=== PATIENT | female | born 2000 | race Caucasian/White ===

== ENCOUNTER 2020-06-29 09:00 | Outpatient (RCR) | payer OTHER, SELFPAY ==
--- NOTE | 2020-06-29 09:00 | BH.SGPN.GN ---
Behaviors/Verbalizations/Mental Status: [] Eye contact is good. Motor activity is appropriate. Appearance is disheveled. Speech is Appropriate. Mood is anxious. Affect is congruent. Thoughts are linear and logical. No evidence of psychosis. Reviewed daily check in sheet and no reports of suicidal ideations or intent. Client Response/Progress/Benefit: [] Pt participated at times. Attentive. This was pt's first day in IOP. She introduced herself to the group stating that she entered [facility] to help with her depression, Bipolar, and anxiety. States I want help and I need this. She discussed being anxious around new people and strangers. Group provided support, encouragement, and some suggestions and advice for her first day and week in the program. No progress noted as this was pt's first day. Will continue in IOP to maintain safety, increase healthy coping, and to stabilize mood. Narrative Note: []
--- NOTE | 2020-06-29 10:10 | BH.SGPN.GN ---
Behaviors/Verbalizations/Mental Status: []Client alert and oriented, casually dressed and groomed. Eye contact good. Motor activity appropriate. Speech within normal limits. Affect constricted, mood dysthymic. Thoughts linear, logical, no signs of hallucinations or delusions. Client Response/Progress/Benefit: []Client engaged participant AEB listening to peers and providing to discussion. Client commented on the quote as well as unhealthy coping skills. Client reported ?some days we will have good days and some days will be terrible, it?s about how we define it.? Client gave examples of unhealthy coping skills such as drinking and drugs. Group shared that people tend to use unhealthy coping skills because they are easier and provide quick relief. Client participated in the group activity and connected that a healthy foundation of coping skills is composed of healthy internal and external coping skills. Client seemed to benefit from increased awareness of the importance of increasing healthy coping skills and consequences of utilizing unhealthy coping skills. Will continue IOP tx to increase healthy coping skills, reduce negative thinking, and improve daily functioning. Narrative Note: []
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
[2020-06-29 10:57] VITALS: BP 120/75; PULSE 100
--- NOTE | 2020-06-29 11:12 | BH.SGPN.GN ---
Behaviors/Verbalizations/Mental Status: [] Client alert and oriented, casually dressed and groomed. Eye contact fair to good. Motor activity appropriate. Speech within normal limits. Affect congruent, mood dysthymic, agitated. Thoughts linear, logical, no signs of hallucinations or delusions Client Response/Progress/Benefit: []Client responded well to session, taking notes, though remaining a mostly passive participant throughout. Group discussed the different categories of coping skills which included distraction, emotional release, grounding, self-love, and thought challenging. Client participated in creating a coping skills ?menu? from the five categories of coping skills. Client's coping skill menu included: video games, hugging, deep breathing, consistent self-care, and reaching out to supports. Client noted she wants to get better at reaching out to healthy supports on a more consistent basis. Appeared to benefit from increasing repertoire of healthy coping skills. Will continue tx to improve daily functioning, increase healthy coping skill repertoire and application, and further improve mental health sx management. Narrative Note: []
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
--- NOTE | 2020-06-29 12:54 | BH.DR.ITP ---
Initial Treatment Plan Patient Information Visit Information: ADMISSION DATE: EXPECTED LOS: 4-6 weeks Problems/Symptoms Problem #1:: Depression Symptom:: Sadness, crying, hopelessness, worthlessness, low motivation, decreased appetite, low energy, guilt, fleeting suicidal ideation, passive thoughts of . Problem #2:: Anxiety Symptom:: Worry, rumination, panic attack.
--- NOTE | 2020-06-30 10:10 | BH.SGPN.GN ---
Behaviors/Verbalizations/Mental Status: [] Eye contact is good. Motor activity is appropriate. Appearance is casual. Speech is Appropriate. Mood is anxious. Affect is congruent. Thoughts are linear and logical. No evidence of psychosis. Client Response/Progress/Benefit: [] Pt was an active participant in group discussion and activity. Attentive during psychoeducation. Provided appropriate feedback. Pt along with peers were able to identify common emotions (both positive and negative) associated with change. Group was able to identify the benefits to making changes such as; personal growth, increased self-esteem, improve mindset, decrease stress, improve emotional health, increase healthy skills, and to get out of same old challenges. Pt and peers were also able to identify some obstacles to making changes which included; low motivation, lack of support, difficult to get out of comfort zone, fear of change, fear of the unknown, fear of repeating past, vulnerability, and asking for help. Pt benefited from group by increasing awareness of emotions and obstacles associated with making changes. Pt will continue in IOP to maintain safety, increase health coping, and to provide support. Narrative Note: []
--- NOTE | 2020-06-30 11:15 | BH.SGPN.GN ---
Behaviors/Verbalizations/Mental Status: []Client alert and oriented, casually dressed and groomed. Eye contact fair. Motor activity appropriate. Speech within normal limits. Affect constricted, mood dysthyimc. Thoughts linear, logical, no signs of hallucinations or delusions. Client Response/Progress/Benefit: []Client responded well to session AEB providing input at times during discussion, engaging in activity, and listening attentively to peers. Client contributed during psychoeducation on the change process and different emotions in each stage of change.Client reports belief she is currently in between the contemplation and preparation stages of change. Client stated barrier to being fully in preparation stage is fear of the unknown. Stated using thought reframe and thinking of the possibilities if she were to make active change could help her move towards preparation stage. Appeared to benefit from identifying what stage of change client is in and identifying strategies to overcome barriers. Will continue IOP tx to increase healthy coping, decrease negative self-talk, and prevent decompensation.
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
--- NOTE | 2020-06-30 20:58 | BH.MTP_ITS ---
Master Treatment Plan - Patient Information Program Physician:: Dr. Wells Primary Therapist:: Aga Gonzales, [facility] - Psychiatric Diagnoses Psychiatric Diagnoses:: Bipolar 2 disorder, depressed; generalized anxiety disorder; attention deficit disorder; rule out ODD by history but patient denies this. Diagnosis Code(s):: F 31.81 - Estimated LOS Estimated LOS (in weeks):: 6 Problem/Goal #1 - Problem/Goal #1 Stated Goal:: Client will increase mood stability and reduce depression due to Bipolar II through Intensive Outpatient Services. Description of Barriers: Potential treatment barriers include pt expressing unsure about commitment to program, substance use, distorted thought patterns, low motivation and apathy. Functional Impact: Pt endorsed diffiuclty getting out of bed, no concentration, no energy, sleeping a lot, and ahedonia. Pt reported mental health symptoms made it hard for her to function in college which has resulted in her failing her first semester of school. Pt stated she didn't go to class because difficulty getting out of bed and had no motivation to complete the school work. Pt's depression and anxiety impact pt's ability to create social relationships. - Objectives Objective #1 Stated Objective: Client will create small weekly goals with activities to improve mood and will identify 2-3 coping strategies to use when feeling depressed. Interventions: Therapist will help client identify activities, in line with maintaining his sobriety, and help client explore additional social outlets. Therapist will utilize CBT techniques to assist client with understanding the connection between thoughts, feelings and behaviors. Education will be provided on behavioral activation. Therapist will assist client in learning internal coping strategies to manage depressive symptoms, along with helping client identify triggers. Discharge Criteria: Client will have achieved this goal when can verbalize and practiced at least 2 healthy coping strategies that successfully manage depressive symptoms. Target Date: 08/11/20 Review Date: 07/28/20 Objective #2 Stated Objective: Pt will decrease depressive symptoms AEB pt?s score on the DSM 5 cross-cutting measure and improve pt?s daily functioning. Interventions: Through groups and individual therapy, pt will be provided with education on cognitive distortions, mistaken beliefs, and identifying and combating negative self-talk. Therapist will assist pt with getting back into the activities she once enjoyed as well as increasing healthy coping strategies. Discharge Criteria: Pt will have met this goal when pt?s score on the DSM 5 cross cutting measure for depression has been decreased and per pt?s report daily functioning has improved. Target Date: 08/11/20 Review Date: 07/28/20 Problem/Goal #2 - Problem/Goal #2 Stated Goal:: Client will reduce overall frequency, intensity, and duration of anxiety so that daily functioning is not impaired.?? Description of Barriers: Potential treatment barriers include pt expressing unsure about commitment to program, substance use, distorted thought patterns, low motivation and apathy. Functional Impact: Pt endorsed diffiuclty getting out of bed, no concentration, no energy, sleeping a lot, and ahedonia. Pt reported mental health symptoms made it hard for her to function in college which has resulted in her failing her first semester of school. Pt stated she didn't go to class because difficulty getting out of bed and had no motivation to complete the school work. Pt's depression and anxiety impact pt's ability to create social relationships. - Objectives Objective #1 Stated Objective: Client will learn and implement 2-3 calming skills to reduce overall anxiety and manage anxiety.?? Interventions: Therapist will teach the client calming/relaxation skills and help clients connect ways to apply skills to daily life. Discharge Criteria: Client will have achieved this goal when can verbalize at least 2 calming skills and implement those skills. Target Date: 08/11/20 Review Date: 07/28/20 Objective #2 Stated Objective: Pt will decrease anxious symptoms AEB pt?s score on the DSM 5 cross-cutting measure improve pt?s daily functioning. Interventions: Through groups and individual therapy, pt will be provided education about anxiety?s impact on body and common physiological reaction to anxiety. Therapist will teach pt appropriate breathing techniques and build healthy coping skills to manage daily anxieties. Discharge Criteria: Pt will have met this goal when pt?s score on the DSM 5 cross cutting measure for anxiety has been decreased and per pt?s report daily functioning has improved. Target Date: 08/11/20 Review Date: 07/28/20
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
--- NOTE | 2020-07-01 09:03 | BH.SGPN.GN ---
This psychotherapy group was provided via telehealth using two-way, real-time interactive telecommunication technology between the patients and the provider. The interactive telecommunication technology included audio and video. The patient was offered telemedicine as an option for care delivery during the COVID-19 pandemic and consented to this option. Patient location: [place] Provider located at [facility] Behaviors/Verbalizations/Mental Status: [] Pt eye contact good, casually dressed, motor activity appropriate, speech normal rate and tone, mood euthymic and anxious, congruent affect, thoughts linear and intact, no evidence of delusions or hallucinations. Patient indicated no suicidal ideation, plan or intent on daily symptom tracker. Client Response/Progress/Benefit: [] Patient receptive of session, engaged throughout AEB sharing thoughts and feelings with group. Identified emotion for the day as ?positive?, noting that she feels a little less anxious about group since attending the first two days. Shared still struggling at times with large group environment and was receptive of supportive feedback provided by fellow group participants. Able to identify current positives which included painting her nails as self-care which was a goal and using positive self-talk when feeling anxious. Current stressor is school as she did not do well last semester due to her mental health and is struggling to decide if she wants to return in the fall. Continues to struggle with internalizing skills, motivation, and negative self-talk which impact progress and reinforce depressive sx. Patient to continue IOP to promote healthy change behaviors, continue to improve sx management and communication with supports, and prevent decompensation. Narrative Note: []
--- NOTE | 2020-07-01 11:15 | BH.SGPN.GN ---
Addendum entered and electronically signed by Aga Gonzales [facility] 07/01/20 16:02: This psychotherapy group was provided via telehealth using two-way, real-time interactive telecommunication technology between the patients and the provider. The interactive telecommunication technology included audio and video. The patient was offered telemedicine as an option for care delivery during the COVID-19 pandemic and consented to this option. Patient location: [place]. Provider located at [facility] Original Note: Behaviors/Verbalizations/Mental Status: []Client alert and oriented, casually dressed and groomed. Eye contact fair. Motor activity appropriate. Speech within normal limits. Affect constricted. Mood dysthymic. Thoughts linear, logical, no signs of hallucinations or delusions. Client Response/Progress/Benefit: []Client mostly passive participant AEB pt providing limited input during discussion, however appeared to listen attentively to peers. Appeared to listen ideas on how to cope with internal barriers that keep clients stuck from moving towards goals. Client able to identify barriers to desired reality which includes: lack of determination to get better, low self-esteem, anxiety, lack of resources, and lack of happiness. Benefited from group by identifying obstacles and solutions to desired reality. Client's first week in IOP. Will continue IOP tx to prevent decompensation, increase healthy coping, and improve daily functioning.
--- NOTE | 2020-07-04 09:00 | BH.SGPN.GN ---
Behaviors/Verbalizations/Mental Status: [] Eye contact is good. Motor activity is appropriate. Appearance is casual. Speech is Appropriate. Mood is anxious. Affect is congruent. Thoughts are linear and logical. No evidence of psychosis. Reviewed daily check in sheet and no reports of suicidal ideations or intent. Client Response/Progress/Benefit: [] Pt was an active participant in group discussion. Attentive. Emotion for today is motivated. Shared that since starting IOP she feels less anxious. Her goal last week was to improve self-care and hygiene. She states that she has showered every day and got her nails done over the weekend. She discussed the mental health benefits of accomplishing these tasks. Progress noted per pt report. Benefited from group encouragement and praise. Will continue in IOP to maintain safety, increase healthy coping, and stabilize mood. Narrative Note: []
--- NOTE | 2020-07-04 10:05 | BH.SGPN.GN ---
Behaviors/Verbalizations/Mental Status: []Client alert and oriented, casually dressed and groomed. Eye contact good. Motor activity appropriate. Speech within normal limits. Affect constricted, mood euthymic. Thoughts linear, logical, no signs of hallucinations or delusions. Client Response/Progress/Benefit: []Pt was an active participant in group discussion and took notes. Connected with quote. Attentive during psychoeducation. Pt worked with group to identify forces that can impact growth and overall mental health. Pt was doing a lot of nodding during the metaphor and shared personal examples of internal and external forces. Pt shared she sometimes tell herself that her bipolar symptoms are out of her control which hinders client from using internal coping skills. Group discussed examples of positive forces such as healthy coping skills and insight as well as negative forces such as distorted thoughts. Pt benefited from increased awareness of the impact positive and negative forces can have on mental health and personal growth. Will continue IOP tx to prevent decompensation, learn healthy coping skills, and reduce negative thinking. Narrative Note: []
--- NOTE | 2020-07-04 11:06 | BH.SGPN.GN ---
Behaviors/Verbalizations/Mental Status: []Client alert and oriented, casually dressed and groomed. Eye contact good. Motor activity appropriate. Speech WNL. Affect congruent, mood anxious and depressed. Thoughts linear, logical, no signs of hallucinations or delusions. Client Response/Progress/Benefit: []Pt engaged during session AEB providing input when elicited, actively participating in activity, completing worksheet, and taking notes throughout. Group processed the activity and identified positive and negative forces impacting ability to complete the challenge. Pt was attentive during psychoeducation and appeared to benefit from increased insight on the impact of own personal negative and positive forces on mental wellness. Identified personal positive forces as: working, having close friends, taking responsibility, maintaining self-care, and reflecting on current mood. Noted plans to increase positive impact of personal responsibility by actively holding herself accountable. Identified negative forces as: toxic friends, lack of supports, letting wants take over the needs, and negative self-talk. Identified wanting to focus on improving her use of positive supports over negative. Recommended continued IOP tx to increase healthy coping skill application, continue to improve emotional stability, and prevent decompensation. Narrative Note: []
--- NOTE | 2020-07-05 09:00 | BH.SGPN.GN ---
Behaviors/Verbalizations/Mental Status: [] Pt eye contact good, casually dressed, motor activity appropriate, speech normal rate and tone, mood euthymic, congruent affect, thoughts linear and intact, no evidence of delusions or hallucinations. Patient indicated no suicidal ideation, plan or intent on daily symptom tracker. Client Response/Progress/Benefit: [] Patient receptive of session, engaged throughout AEB sharing thoughts and feelings with group. Identified emotion for the day as ?tired but not in a bad way?, noting this is due to challenging herself to reach out to others more regularly rather than isolate. Client identified this has been helpful in reducing loneliness and improving relationships but that she is used to being introverted and there is paula adjusting. Discussed plans to spend some time alone this afternoon as a means of recharging before hanging out with friends. Identified continued progress in achieving self-care goals of daily showers and maintaining clean nails. Discussed ongoing stressor as difficulties in saying ?no? to others which has resulted in toxic friendships in the past. Receptive of supportive feedback and expressed wanting to continue to work on improving healthy boundaries. Patient to continue IOP to promote healthy change behaviors, continue to improve sx management, and prevent decompensation. Narrative Note: []
--- NOTE | 2020-07-05 10:20 | BH.SGPN.GN ---
Behaviors/Verbalizations/Mental Status: []Client alert and oriented, disheveled appearance. Eye contact good. Motor activity appropriate. Speech within normal limits. Affect flat, mood dysthymic. Thoughts linear, logical, no evidence of hallucinations or delusions. Client Response/Progress/Benefit: []Client responded well to session, attentive and contributing to discussion. Client worked cooperatively with the group to identify factors that contributed to how we define ourselves which included: upbringing, core beliefs, trauma, social media, past failures, and mental health. Group defined and discussed social and perceived stigma. Client reported she has experienced the impacts of perceived and social mental health stigma. Client shared she has been told she does things ?just to get attention? which causes client to feel angry and lash out. Client recognizes that this can reinforce stigma towards mental health. Client seemed to benefit from increased awareness of how mental health stigma can impact view of self. Client to continue IOP tx to prevent decompensation, increase emotional regulation skills, and improve self-care. Narrative Note: []
--- NOTE | 2020-07-05 11:15 | BH.SGPN.GN ---
Behaviors/Verbalizations/Mental Status: []Client alert and oriented, casually dressed, hygiene appeared to be tended to. Eye contact fair. Motor activity appropriate. Speech within normal limits. Affect constricted, mood dysthymic. Thoughts linear, logical, no signs of hallucinations or delusions. Client Response/Progress/Benefit: []Client engaged participant AEB pt providing input during discussion and listened attentively to peers. Client worked with group to identify what mental stigma has prevented them from doing. Group brainstormed strategies to combat social and perceived stigma which included: educating others, no longer joking about mental illness , being open about mental health, self-compassion and not reinforcing stigma with behaviors or labels. Client stated she will attempt to decrease perceived stigma by opening up to people in her life about her mental health instead of pushing others away. Appeared to benefit from increasing awareness of strategies to combat stigma. Will continue IOP tx to increase healthy coping, improve daily functioning and prevent decompensation. Narrative Note: []
--- NOTE | 2020-07-11 09:00 | BH.SGPN.GN ---
Behaviors/Verbalizations/Mental Status: [] Eye contact is good. Motor activity is appropriate. Appearance is casual. Speech is Appropriate. Mood is euthymic. Affect is full. Thoughts are linear and logical. No evidence of psychosis. Reviewed daily check in sheet and no reports of suicidal ideations or intent Client Response/Progress/Benefit: [] Pt was an active participant in group discussion. Attentive. Provided appropriate feedback. Emotion for today is exhausted but positive. Shared that she has been utilizing her skills more in the past few weeks which has helped her better manage her depression and anxiety. Skills most beneficial include self-care and opposite action. She gave an example of when she used opposite action to avoid isolation this weekend. Reported that last week was very exciting and stressful. She entered into a relationship and got approved for an apartment. This will be the first time that she will be living independently. Progress noted per pt report. Benefited from group support, encouragement, and feedback. Will continue in IOP to maintain safety, prevent decompensation, and to improve coping skills. Narrative Note: []
--- NOTE | 2020-07-11 10:14 | BH.SGPN.GN ---
Behaviors/Verbalizations/Mental Status: []Client alert and oriented, casually dressed and groomed. Eye contact good. Motor activity appropriate. Speech within normal limits. Affect congruent, mood depressed. Thoughts linear, logical, no evidence of delusions or hallucinations. Client Response/Progress/Benefit: []Client engaged throughout session AEB providing input, connecting with others examples, and taking notes throughout. Appeared to connect with discussion on crisis and how unhealthy coping could result in a personal crisis. Shared that ?Bad coping skills tend to lead to worse coping skills?. Group reflected on examples of what a crisis can be and the importance of having awareness of personal warning signs in order to prevent reaching crisis point. Group identified potential warning signs for crisis and client completed the personal warning signs worksheet. Client identified personal crisis warning signs to include: low self-care, apathy, increased risk taking. Client reports she can tell when struggling if she begins to have a more difficult time in encouraging herself to complete regular self-care tasks. Client benefited from increasing awareness of what leads to crisis and personal warning signs. Client will continue IOP tx to prevent decompensation, continue to improve daily functioning, and increase consistent use of healthy coping skills. Narrative Note: []
--- NOTE | 2020-07-11 11:15 | BH.SGPN.GN ---
Behaviors/Verbalizations/Mental Status: []Client alert and oriented, casually dressed and groomed. Eye contact fair. Motor activity appropriate. Speech within normal limits. Affect congruent. Mood euthymic. Thoughts linear, logical, no signs of hallucinations or delusions. Client Response/Progress/Benefit: []Client responded well to session as evidenced by client listening attentively to others and providing strategies during discussion. Client identified her warning signs for crisis and gained further awareness of earliest warning signs. Client created a crisis action plan to help client better manage warning signs for crisis. Client?s action plan for increased risk taking includes: writing down consequences of driving high, find a visualization of her goals to put as phone screensaver, and rudy something motivational for herself. Client appeared to benefit from creating a crisis action plan and increasing self-awareness. Client to continue IOP tx to increase consistent use of healthy coping, challenge distorted thoughts and prevent decompensation.
--- NOTE | 2020-07-12 09:00 | BH.SGPN.GN ---
Behaviors/Verbalizations/Mental Status: [] Eye contact is good. Motor activity is appropriate. Appearance is neat. Speech is Appropriate. Mood is euthymic. Affect is full. Thoughts are linear and logical. No evidence of psychosis. Reviewed daily check in sheet and no reports of suicidal ideations or intent. Client Response/Progress/Benefit: [] Pt was an active participant in group discussion. Attentive. Provided appropriate feedback. Emotion for today is hopeful. Pt shared that she she is continuing with goals for self-care as she showered and got her nails done yesterday. Utilizing skills. Excited and stressed about upcoming changes. She is touring her apartment today with plans to move shortly. Feels optimistic about her future and her relationships. Overall a very positive check-in and has noted gradual improvement since starting IOP. Progress noted per pt report. Benefited from group support and encouragment. Will continue in IOP to maintain gains and increase healthy coping skills consistently. Narrative Note: []
--- NOTE | 2020-07-12 11:19 | BH.SGPN.GN ---
Behaviors/Verbalizations/Mental Status: []Client alert and oriented, neatly dressed and groomed. Eye contact good. Motor activity appropriate. Speech within normal limits. Affect constricted, mood euthymic. Thoughts linear, logical, no signs of hallucinations or delusions. Client Response/Progress/Benefit: []Client responded well to session, connecting with peers and receptive to supportive statements. Client engaged during psychoeducation on the different boundary styles. Client reported she has porous boundaries and shared she struggles with setting boundaries because she is afraid of the response. Client reports this leads to increased depression and feeling overwhelmed. Client participated in brainstorming strategies to improve boundary setting. Client wants to work on the strategy of practicing saying no using different phrases. Seemed to benefit from increased awareness of how current boundary style impacts mental health and learning different strategies to improve boundary style. Client to continue IOP tx to increase healthy coping skills, reduce distorted thoughts, and improve mood stability. Narrative Note: []
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
--- NOTE | 2020-07-14 09:04 | BH.SGPN.GN ---
This psychotherapy group was provided via telehealth using two-way, real-time interactive telecommunication technology between the clients and the provider. The interactive telecommunication technology included audio and video. The client was offered telemedicine as an option for care delivery during the COVID-19 pandemic and consented to this option. Client location: [place] Provider located at [facility] Behaviors/Verbalizations/Mental Status: []Client alert and oriented, casually dressed and groomed. Eye contact good. Motor activity appropriate. Speech within normal limits. Affect incongruent to mood-flat, mood euthymic. Thoughts linear, logical, no signs of hallucinations or delusions. Reviewed client?s symptom tracker, no risk for suicidal ideation, plan, or intent as of 07/14/20 Client Response/Progress/Benefit: []Client responded well to session, engaged and providing supportive feedback to peers. Client reports feeling exhausted but happy this morning. Client shared she had some issues with her apartment this week which triggered a crying spell and client began to feel depressed. Client stated she was able to work through this much faster than she has in the past by using grounding and opposite action. Client reported she also was proactive and asked support to help her move next week rather than waiting until the last minute. Appeared to benefit from reflecting on her application of coping skills. Progress noted in client's use of opposite action to combat depressive symptoms. Will continue IOP tx to promote mood stability and further increase emotional regulation skills. Narrative Note: []
--- NOTE | 2020-07-14 10:20 | BH.SGPN.GN ---
Behaviors/Verbalizations/Mental Status: []Eye contact is poor, looking at phone and items off screen. Alert and oriented. Motor activity is appropriate. Appearance is casual. grooming is appropriate. Speech is WNL, limited input provided. Mood is dysthymic. Affect is congruent. Thoughts are linear and logical. No evidence of psychosis or hallucinations. Client Response/Progress/Benefit: [] Client receptive to session, though struggle to remain engaged or participate in discussion and group activity, Client connected with topic of managing emotions, nodding as participants discussed potential benefits of emotion regulation. However, through much of session appeared to be distracted by her phone and other items in the room. Client is typically engaged when attending session in person. Given difficulties in engaging in the telehealth setting, it is recommended client attend virtually to promote client progress and treatment internalization. Will continue IOP to promote continued use of healthy coping skills, improve consistent mood stability, and prevent decompensation. Narrative Note: []
--- NOTE | 2020-07-21 09:04 | BH.SGPN.GN ---
Behaviors/Verbalizations/Mental Status: [] Pt eye contact good, casually dressed, motor activity appropriate, speech normal rate and tone, mood euthymic, slightly anxious, constricted affect, thoughts linear and intact, no evidence of delusions or hallucinations. Per patient symptom tracker patient denies current suicidal ideation, plan, or intent. Client Response/Progress/Benefit: []Pt responded well to session AEB pt listening attentively to others and openly sharing thoughts and feelings. Pt reported stressor as moving tomorrow to an apartment. Pt stated worries about being able to get everything done. Pt stated additional stressor as waking up in a bad mood then getting in a fight with her parents. Pt reported mental health positive as work not being as stressful. Pt identified using positive affirmations and opposite action to help manage symptoms. Pt mood seems dependent on current circumstance. Pt seemed to benefit from support from group. Pt to continue IOP to continue use of healthy coping, challenge negative thoughts and prevent decompensation. Narrative Note: []
--- NOTE | 2020-08-02 10:08 | BH.SGPN.GN ---
Behaviors/Verbalizations/Mental Status: []Client alert and oriented, casual dress, hygiene tended to. Eye contact fair to good. Motor activity appropriate. Speech within normal limits. Affect flat, mood dysthymic. Thoughts linear, logical, no signs of hallucinations or delusions. Client Response/Progress/Benefit: [] Mostly engaged participant AEB pt providing some input when prompted throughout session and listening attentively to others. Engaged during psychoeducation portion reviewing fixed mindset, though at times did appear distracted by own thoughts. Discussed that fixed thoughts have led to not seeking help from others in the past. Pt listening as the group worked to identify how a fixed mindset can impact mental health which included: keeping people stuck, reinforcing fear of failure, giving up, and negative self-talk. Able to identify personal examples of fixed thoughts which included ?This has gone on so long, I just have to deal with it on my own?. Client shared that she can connect with negative past experiences as reinforcing fixed thoughts. Seemed to benefit from group by increasing awareness of how one's mindset can impact mental health and ability to cope. Pt will continue IOP tx this week to continue to promote healthy coping skills and continue to improve mental health sx management. Narrative Note: []
--- NOTE | 2020-08-09 11:13 | BH.SGPN.GN ---
Behaviors/Verbalizations/Mental Status: []Eye contact is fair. Motor activity is appropriate. Appearance is casual. Speech is Appropriate. Mood is depressed. Affect is congruent. Thoughts are linear and logical. No evidence of psychosis. Client Response/Progress/Benefit: []Pt was a semi-active participant AEB attentiveness and participation in activity. Listening throughout group discussion on benefits and examples of healthily social supports, though remained a mostly passive participant throughout. At times client appeared to be distracted by own thoughts or disengaged. Client did well to acknowledge some of the benefits of a support system and actively participated in group activity, however continued to refrain from speaking throughout. Benefited from supportive group environment, as well as gaining awareness of barriers to support as well as importance of support in mental health wellness. Will continue IOP tx to continue to improve mood management, continue to promote healthy change behaviors, and prevent decompensation. Narrative Note: []
--- NOTE | 2020-08-11 11:18 | BH.SGPN.GN ---
Behaviors/Verbalizations/Mental Status: []Client alert and oriented, casually dressed and groomed. Eye contact fair. Motor activity appropriate. Speech within normal limits. Affect constricted, mood dysthymic. Thoughts linear, logical, no signs of hallucinations or delusions. Client Response/Progress/Benefit: []Client remain semi-engaged participant AEB client participating during discussion, providing input when prompted. Continues to struggle with concentration and becoming distracted by self/own thoughts which impacts participation. Contributed in group discussion on the various areas of self-care, benefits, and types of self-care activities for each area. Client completed worksheet in which client identified current self-care practices and what self-care activities client wants to start using. Client reported she is currently excelling in areas of professional, physical, and emotional self-care. Expressed wanting work on financial self-care as this has been a stressor since moving out on her own. Client shared she wants to begin by creating a weekly budget for herself. Appeared to benefit from reflecting on the area of self-care client can improve and setting a small goal. Discharging on this date and is encouraged to follow-up with outpatient providers. Narrative Note: []
== END 2020-07-18 23:59 ==
LOC: BHIOP 09:00
PROVIDERS: Referring Provider Psychiatry & Neurology Psychiatry; Visit Provider Psychiatry & Neurology Psychiatry
DX: F31.81 Bipolar II disorder (principal); F41.1 Generalized anxiety disorder; F98.8 Other specified behavioral and emotional disorders with onset usually occurring in childhood and adolescence; E03.8 Other specified hypothyroidism; Z79.899 Other long term (current) drug therapy
CPT/HCPCS: H0035; 90832; 90834; 90853

== ENCOUNTER 2020-07-19 09:00 | Outpatient (RCR) | payer OTHER, SELFPAY ==
[2020-07-19 00:42] VITALS: BP 120/75; PULSE 100
--- NOTE | 2020-07-19 09:00 | BH.SGPN.GN ---
Behaviors/Verbalizations/Mental Status: [] Eye contact is good. Motor activity is appropriate. Appearance is casual. Speech is Appropriate. Mood is anxious. Affect is congruent. Thoughts are linear and logical. No evidence of psychosis. Reviewed daily check in sheet and no reports of suicidal ideations or intent. Client Response/Progress/Benefit: [] Pt was an active participant in group discussion. Attentive. Provided appropriate feedback. Daily symptom tracker notes 03/25 for anxiety and irritation. Emotion for today is stressed. Shared with the group that she had a panic attack at work on 07/15/20. This was due to being overwhelmed and busy. Reports that she did not get support from co-workers which led to ruminations and panic. 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 Looking back at the event she had insight regarding what she could have done differently including assertive communication with co-workers and management. She is excited and anxious about upcoming move into her own apartment. Packing has been stressful. Group normalized the emotions related to change. Progress noted per pt report. Benefited from group support and feedback. Will continue in IOP to maintain safety and increase healthy coping. Narrative Note: []
--- NOTE | 2020-07-19 10:10 | BH.SGPN.GN ---
Behaviors/Verbalizations/Mental Status: [] Eye contact is good. Motor activity is appropriate. Appearance is casual. Speech is Appropriate. Mood is anxious. Affect is congruent. Thoughts are linear and logical. No evidence of psychosis. Client Response/Progress/Benefit: [] Pt was an active participant in group discussion and activity. Attentive during psychoeducation on factors that build resiliency. Worked with peers to to define resiliency in which they settled on bouncing back from difficult times. Along with peers also identified what could impact resilience which included; environment, upbringing, family MH beliefs, poverty, support, trauma, never learning coping skills, and emotions. Insight in how group experiential activity in which therapist induced chaotic environment impacted resilience and how group overcame it. Pt benefited by increasing awareness on the role of resilience in mental health and factors that can help build resiliency. Will continue in IOP to maintain gains and increase healthy coping strategies. Narrative Note: []
--- NOTE | 2020-07-19 11:14 | BH.SGPN.GN ---
Behaviors/Verbalizations/Mental Status: []Client alert and oriented, neatly dressed and groomed. Eye contact good. Motor activity appropriate. Speech within normal limits. Affect constricted, mood dysthymic. Thoughts linear, logical, no signs of hallucinations or delusions. Client Response/Progress/Benefit: []Client responded well to session, engaged and participated throughout discussion. Client participated in the discussion of how each resiliency component can help increase personal resiliency. Client worked with group to identify ways to practice each of the resiliency traits reviewed. Provided personal examples. Client shared belief client has the resiliency trait of having self-awareness which has helped client be more ?centered? and recognize distortions. Client would like to work the resiliency trait of nurturing a positive view of herself and making connections. Appeared to benefit from reflecting on already existing resiliency traits and learning how to strengthen resilience. Will continue IOP tx to promote use of healthy coping skills, reduce negative thinking, and improve daily functioning. Narrative Note: []
--- NOTE | 2020-07-21 10:10 | BH.SGPN.GN ---
Behaviors/Verbalizations/Mental Status: [] Eye contact is good. Motor activity is appropriate. Appearance is casual. Speech is Appropriate. Mood is euthymic. Affect is full. Thoughts are linear and logical. No evidence of psychosis. Client Response/Progress/Benefit: [] Pt was an active participant in group discussion and activity. Insight during activity that finding positive aspects of a picture was more challenging than identifying negatives. Pt along with peers were able to identify what could impact one's perspective which included; upbringing, core beliefs, environment, relationships, and sleep. Group was able to identify how a negative perspective could impact progress in mental health treatment leading to beliefs such as; I will not get better, nobody understands me, apathy, withdrawing, irritability, catastrophizing, disqualifying positives, focusing on flaws, personalizing, labeling, focusing on negatives, and convincing one to quit. Pt was able to identify a perspective that has been helpful for her which was understanding how others view her which helped improve her relationships. Benefited from group by increasing awareness on the role of perspective in mental health wellness. Will continue in IOP to maintain gains. Narrative Note: []
--- NOTE | 2020-07-21 14:38 | BH.MDN ---
Multi-Disciplinary Note - Note 45-min Individual Time Started:: 11:10 Date: 07/21/20 Purpose of session/treatment goals addressed:: Purpose of session was to address goals 1 and 2 from MTP. Eye Contact:: Fair Motor Activity:: Appropriate Appearance:: Casual Speech:: Appropriate Mood:: Anxious Affect:: Constricted Thoughts:: Linear, Logical, No evidence of hallucinations/delusions noted Staff Interventions:: motivational interviewing, CBT techniques, strengths perspective, goal setting, taught coping skills Client Response:: Pt reported she woke up in a bad mood this morning and took it out on her parents. Pt worked with therapist to identify what she can do next time she wakes up in a bad mood like communicating this to her parents right away. Pt stated she has been doing better with her goal of brushing her teeth daily. Pt stated showering has still been a struggle. Pt reported her anxiety has been increasing as she gets closer to moving to her own apartment. Pt stated work is starting to get less stressful. Identified attending IOP to be helpful because provides different perspective and finds it helpful to hear from other people with similar experiences. Pt reported she would like to work on saying positive affirmations on a more consistent basis. Pt reported she wants to learn more in the moment anxiety management skills. Pt stated she uses grounding tool like 5,4,3,2,1 skill but doesn't have anything else that has helped. Pt connected with education on progressive muscle relaxation. Pt stated her gal is to practice progressive muscle relaxation and take a bath. Risks/Concerns:: denies current suicidal ideation, plan or intention to date. Progress Toward Goals/Plan:: Progress noted with pt reporting follow through with goal of brushing teeth, identifies improved sleep, energy and motivation. Pt continues to struggle with anxious thoughts and feelings, especially with upcoming move to own apartment. Pt to continue IOP to increase consistent use of healthy coping, challenge distorted thoughts and prevent decompensation. Time Stopped:: 12:00
--- NOTE | 2020-07-25 09:00 | BH.SGPN.GN ---
Behaviors/Verbalizations/Mental Status: [] Pt eye contact good, casually dressed, motor activity appropriate, speech normal rate and tone, mood euthymic, congruent affect, thoughts linear and intact, no evidence of delusions or hallucinations. Reviewed client?s symptom tracker, no signs of suicidal ideation, plan, or intent as of today. Client Response/Progress/Benefit: []Pt responded well to session AEB by pt listening attentively to peers and sharing thoughts and feelings. Pt reported mental health positive as successfully moving in to her new apartment on Saturday. Pt stated she did struggle a little with managing emotions the day of the move but overall went better than she expected. Pt shared additional positive as being able to unpack and set up her apartment. Patient stated no current stressors. Progress noted with patient reporting decrease in depressive and anxious symptoms. Patient to continue IOP to maintain gains, continue use of healthy coping skills, and prevent decompensation. Narrative Note: []
--- NOTE | 2020-07-25 10:10 | BH.SGPN.GN ---
Behaviors/Verbalizations/Mental Status: [] Eye contact is good. Motor activity is appropriate. Appearance is casual. Speech is Appropriate. Mood is euthymic. Affect is full. Thoughts are linear and logical. No evidence of psychosis. Client Response/Progress/Benefit: [] Pt was an active participant in group discussion. Limited engagement in activity however this was due to attending group virtually. Attentive during psychoeducation. Pt and peers provided examples of pitfalls or setbacks that people can fall into which impact mental health which included; triggers, fear, cognitive distortions, isolating, self-pity, avoidance, and pushing support away. Benefited from group by increasing awareness of pitfalls which can impact mental health. Pt will continue in IOP to maintain gains and increase healthy coping strategies. Narrative Note: [] This psychotherapy group was provided via telehealth using two-way, real-time interactive telecommunication technology between the patients and the provider. The interactive telecommunication technology included audio and video. The patient was offered telemedicine as an option for care delivery during the COVID-19 pandemic and consented to this option. Patient location: [place] Provider located at [facility]
--- NOTE | 2020-07-25 11:18 | BH.SGPN.GN ---
This psychotherapy group was provided via telehealth using two-way, real-time interactive telecommunication technology between the clients and the provider. The interactive telecommunication technology included audio and video. The client was offered telemedicine as an option for care delivery during the COVID-19 pandemic and consented to this option. Client location: [place] Provider located at [facility] Behaviors/Verbalizations/Mental Status: []Client alert and oriented, casually dressed and groomed. Eye contact fair. Motor activity appropriate. Speech within normal limits. Affect constricted, mood euthymic. Thoughts linear, logical, no signs of hallucinations or delusions Client Response/Progress/Benefit: []Client receptive of session, engaged throughout AEB client actively listening and contributing to discussion, as well as taking notes. Client completed worksheet identifying personal pitfalls impacting mental health progress. Client identified the following pitfalls: unrealistic expectations for others, lashing out, lack of communication, and lack of boundaries. Attentive during group brainstorm of strategies to overcome pitfalls. Client will work on overcoming lashing out by working on taking a breath before she responds and reminding herself that her supports are humans too. Benefited from identifying personal pitfalls and strategies to overcome these pitfalls. Will continue IOP tx to promote gains, further improve emotional regulation skills, and increase consistent use of coping skills. Narrative Note: []
--- NOTE | 2020-07-26 09:00 | BH.SGPN.GN ---
Behaviors/Verbalizations/Mental Status: []Client alert and oriented, casually dressed and groomed. Eye contact good. Motor activity appropriate. Speech within normal limits. Affect constricted, mood euthymic. Thoughts linear, logical, no signs of hallucinations or delusions. Reviewed client?s symptom tracker, no risk for suicidal ideation, plan, or intent as of 07/26/20 Client Response/Progress/Benefit: C[]Client responded well to session, attentive and providing positive feedback. Client reports feeling optimistic this morning as client stated she has no stressors to report. Client shared she feels stable today but client could not pinpoint what was contributing to her improved mood. Client appears to be socializing more as she reported introducing herself to her neighbors this week. Client's mood appears to be situational based and on a weekly basis it can change. Client has done well to recognize changes in her mood and apply coping skills. Appeared to benefit from reflecting on improved mood. Progress noted in self-report of stability, but continues to struggle with prolonged stability. Will continue IOP tx to promote gains, reinforce healthy coping skills, and increase self-care. Narrative Note: []
--- NOTE | 2020-07-26 10:05 | BH.SGPN.GN ---
Behaviors/Verbalizations/Mental Status: [] Eye contact is good. Motor activity is appropriate. Appearance is casual. Speech is Appropriate. Mood is euthymic. Affect is full. Thoughts are linear and logical. No evidence of psychosis. Client Response/Progress/Benefit: [] Pt was an active participant in group discussion and activity. Attentive during psychoeducation. Group identified the benefits of making changes or taking action on their mental wellness which included; increased confidence, healthier relationships, improved emotional health, reduction of anxiety, increased awareness, and improved recognition of triggers. Pt stated that the 3 biggest obstacles for her are lack of motivation, her temper, and fear of confrontation. Increased awareness of importance of taking action in mental health and obstacles that keep them from taking action. Will continue in IOP to maintain gains and stabilize mood. Narrative Note: []
--- NOTE | 2020-07-26 11:10 | BH.SGPN.GN ---
Behaviors/Verbalizations/Mental Status: []Client alert and oriented, casually dressed and appropriately groomed. Eye contact good. Motor activity appropriate. Speech within normal limits. Affect congruent, mood euthymic. Thoughts linear, logical, no signs of hallucinations or delusions. Client Response/Progress/Benefit: []Client responded well to session, taking notes and participating in worksheet discussion. Client set a goal to gain control over her low motivation. Client wants to be able to work on this by challenging self to learn one new cooking skill each week. Client stated in order to accomplish this goal she will have to use opposite action, research cooking skills and find new recipes. Worked with group to brainstorm ideas to help increase follow through of goal. Appeared to benefit from identifying a small goal to benefit mental health. Will continue IOP tx to prevent decompensation, continue use of healthy coping skills, and improve emotion regulation. Narrative Note: []
--- NOTE | 2020-07-27 13:36 | BH.TPR ---
Treatment Plan Review Date of Admission:: 06/29/20 Date of Treatment Plan Review:: 07/27/20 Admitting Diagnoses:: Bipolar 2 disorder, depressed (F 31.81); generalized anxiety disorder; attention deficit disorder; rule out ODD by history but patient denies this. Current Diagnoses:: Bipolar 2 disorder, depressed (F 31.81); generalized anxiety disorder; attention deficit disorder; rule out ODD by history but patient denies this. Patient's Response to Treatment:: Pt responded well to treatment AEB pt's consistent attendance, active contributions during group and applying skills outside treatment enviornment. Status of Current Problems and Symptoms: Problems ongoing. Continues to struggle with emotion regulation, has more difficulty with managing anger in the moment. Recent stressor of moving to apartment by herself, pt adjusting to more independence. Problem #1 Problem Name:: Mood instability Status of Goals:: Obj 1: Ongoing work needed. Pt struggles with consistent follow through of goals. Having hard time following through with weekly goal of improving personal hygiene. Obj 2: ongoing work needed. Per pt's DSM 5 scores increase in depressive symptoms by 33%. Team Recommendations:: Continue current goals and objectives. Teach strategies to help increase follow through of weekly goals. Problem #2 Problem Name:: Anxiety Status of Goals:: Obj : Ongoing work needed. Pt able to identify healthy coping skills like breathing and 5 senses. Struggles with managing in the moment at times. Obj 2: ongoing work needed. Per pt's DSM 5 scores increase in anxious symptoms by 50%. Team Recommendations:: Continue current goals and objectives.
--- NOTE | 2020-07-28 10:15 | BH.SGPN.GN ---
Behaviors/Verbalizations/Mental Status: []Client alert and oriented, casually dressed and groomed. Eye contact poor. Motor activity appropriate. Speech within normal limits. Affect constricted, mood irritable. Thoughts linear, logical, no signs of hallucinations or delusions. Client Response/Progress/Benefit: []Client was a somewhat engaged participant AEB client listening attentively to others. Client quiet and on her phone at times. The group worked together to identify barriers that keep one from choosing a new and healthier path to mental wellness. Attentive during psychoeducation on the chapters of life. Benefited from increased awareness and education on barriers to choosing new wellness paths and chapters of life. Client did not identify what chapter of life she was in currently, appeared disengaged today during group as client usually contributes to discussion. Will continue IOP tx to improve daily functioning and increase mood stability. Narrative Note: []
--- NOTE | 2020-07-28 14:39 | BH.MDN_ITS ---
Multi-Disciplinary Note - Note 30-min Individual Time Started:: 09:15 Date: 07/28/20 Purpose of session/treatment goals addressed:: Purpose of session was to address goals 1 and 2 from MTP. Eye Contact:: Fair Motor Activity:: Appropriate Appearance:: Casual Speech:: Appropriate Mood:: Euthymic Affect:: Constricted Thoughts:: Linear, Logical, No evidence of hallucinations/delusions noted Staff Interventions:: motivational interviewing, CBT techniques, goal setting Client Response:: Pt reported she has been struggling with being bored in her new apartment which has led to pt laying around more often. Pt stated she hasn't had any panic attacks in several weeks and stated a decrease in depression. Pt reported she hasn't been having anger outbursts like she was when living with her parents. Pt stated she believes her relationship has improved with her parents since living separate. Problem solved with therapist to identify activities she could do to help decrease boredom. Pt identified rudy, coloring, painting, and watching a show as possible activites. Stated her goal for the next week is to spend time weeding and paint at least one time. Risks/Concerns:: Pt denies suicidal/homicidal ideation, plan or intention. Progress Toward Goals/Plan:: Progress noted with pt reporting decreased depression, no panic attacks in several weeks, decreased anger, improved fu nctioning at work and improved relationship with parents. Pt struggling with adjusting to living on her own, but overall reporting significant progress. Pt to continue IOP to maintain gains, continue use of healthy coping and prevnet decompensation. Time Stopped:: 09:35
--- NOTE | 2020-08-02 09:02 | BH.SGPN.GN ---
This psychotherapy group was provided via telehealth using two-way, real-time interactive telecommunication technology between the patients and the provider. The interactive telecommunication technology included audio and video. The patient was offered telemedicine as an option for care delivery during the COVID-19 pandemic and consented to this option. Patient location: [place] Provider located at [facility] Behaviors/Verbalizations/Mental Status: [] Pt eye contact good, casually dressed, motor activity appropriate, speech normal rate and tone, mood euthymic, congruent affect, thoughts linear and intact, no evidence of delusions or hallucinations. Reviewed client?s symptom tracker, no signs of suicidal ideation, plan, or intent as of today. Client Response/Progress/Benefit: []Patient responded well to session as evidenced by sharing thoughts and feelings and listened attentively to peers. Patient stated medical positive as being able to manage stressors while at work in a more appropriate healthy manner. Patient reported additional positive as being a neighbor yesterday and having a dog play date. Patient stated starting to feel more comfortable in her apartment complex and adjusting well to being more independent. Initially struggled with identifying positives because overall she has been doing well with help recognizing she and managing her anger better and communicating more appropriately with others. Patient to continue IOP to maintain gains, continue work on emotional regulation and prevent decompensation. Narrative Note: []
--- NOTE | 2020-08-04 09:00 | BH.SGPN.GN ---
Behaviors/Verbalizations/Mental Status: [] Eye contact is good. Motor activity is appropriate. Appearance is disheveled. Speech is Appropriate. Mood is irritable. Affect is congruent. Thoughts are linear and logical. No evidence of psychosis. Reviewed daily check in sheet and no reports of suicidal ideations or intent. Client Response/Progress/Benefit: [] Pt only participated when prompted. Disengaged during group discussion and peer check-ins. Pt states I'm irritable and unmotivated today. No specific trigger. I don't want to be here and almost did not show up. Shared that she is unsure why she is disengaged and irritable as she has been managing her emotions well until this AM. Reports that she has been showering regularly and actually made dinner for herself yesterday. She apologized for her mood to the group. No progress noted. Will continue in IOP to maintain gains and prevent decompensation. Limited benefit to group today as she was irritable and disengaged. Narrative Note: [] This psychotherapy group was provided via telehealth using two-way, real-time interactive telecommunication technology between the patients and the provider. The interactive telecommunication technology included audio and video. The patient was offered telemedicine as an option for care delivery during the COVID-19 pandemic and consented to this option. Patient location: [place] Provider located at [facility]
--- NOTE | 2020-08-04 10:15 | BH.SGPN.GN ---
Behaviors/Verbalizations/Mental Status: []Client alert and oriented, casual dress, hygiene tended to. Eye contact fair. Motor activity appropriate. Speech within normal limits. Affect congruent. Mood euthymic. Thoughts linear, logical, no signs of hallucinations or delusions. Client Response/Progress/Benefit: []Pt mostly passive participant AEB providing limited input during group discussions however appeared to listened attentively to others. Pt listened to group identify benefits of emotional health which included: improved relationships, increased patience, improved regulation, and improved communication. Pt attentively listened to discussion about barriers of improving emotional wellness. Seemed to benefit from increased awareness of importance of improving emotional wellness. Pt to continue IOP to continue use of healthy coping and prevent decompensation. Narrative Note: []
--- NOTE | 2020-08-09 09:05 | BH.SGPN.GN ---
Behaviors/Verbalizations/Mental Status: [] Eye contact is good. Motor activity is appropriate. Appearance is casual. Speech is Appropriate. Mood is depressed. Affect is flat. Thoughts are linear and logical. No evidence of psychosis. Reviewed daily check in sheet and no reports of suicidal ideations or intent. Client Response/Progress/Benefit: [] Pt was an active participant in group discussion. Attentive. Emotion for today is emotionally exhausted. Shared that she has been depressed for 4 days. Shared stressors and ruminations mainly related to peers and work. Feeling overwhelmed and burned out. Reports increased hours at work due in large part to financial stressors. Reports that she had made plans with a friend and then friend ended up not following through which was upsetting and led to cognitive distortions. She continues to utilize skills specifically positive affirmations to help with mood management. Slight regression per pt report. Benefited from group support, encouragement, and feedback. Will conitnue in IOP to maintain gains and prevent decompensation. Narrative Note: []
--- NOTE | 2020-08-09 11:13 | BH.SGPN.GN ---
Behaviors/Verbalizations/Mental Status: []Client alert and oriented, disheveled appearance. Eye contact good. Motor activity appropriate. Speech within normal limits. Affect flat, mood dysthymic. Thoughts linear, logical, no signs of hallucinations or delusions. Client Response/Progress/Benefit: []Client an active participant throughout AEB contributing to discussion and taking notes. Client participated in the group activity highlighting the various barriers to effectively utilizing supports and strategies the group used. Client participated in discussion of the four types of support (emotion, tangible, informational, and social/peer) and the group listed examples for all types. Client reports wanting to work on increasing peer support as client feels this will keep client more engaged and create a stronger support system. Client will do this by scheduling a date with a friend, communicating her emotions to family, and exploring local groups. Client seemed to benefit from identifying the type of support client wants to improve. Will continue IOP tx to reinforce healthy coping skills and promote mood stability. Narrative Note: []
--- NOTE | 2020-08-11 09:05 | BH.SGPN.GN ---
Behaviors/Verbalizations/Mental Status: []Client alert and oriented, casually dressed. Eye contact fair. Motor activity appropriate. Speech within normal limits. Affect congruent, mood euthymic. Thoughts linear, logical, no signs of hallucinations or delusions. Reviewed client?s symptom tracker, no risk or plan for suicide ideation. Client Response/Progress/Benefit: []Pt responded well to session AEB pt openly sharing thoughts and feelings and listening attentively to peers. Pt stated she used her skills of open, direct communication by letting a friend know that she was hurt that the friend cancelled their plans last minute. Pt reported the friend did not respond like pt had been hoping but is proud of herself for directly communicating. Pt reported additional mental health positives as showering, coloring, did nails, and did painting with a friend. Pt stated stressor is realizing she has several unreliable friends. Pt stated she is feeling ready for discharge and is happy with the progress she has made. Pt seemed to benefit from reflecting on her treatment progress. Pt to discharge from [facility] today. Narrative Note: []
--- NOTE | 2020-08-11 11:03 | BH.AFTERPLAN ---
Aftercare Plan - Demographics Treatment End Date:: 08/11/20 Psychiatrist:: Laura Palm [facility]/IOP Therapist:: Aga Gonzales Therapist Phone #:: [phone] - Plan Details Progress/Aftercare Plan Details:: Treatment progress includes: feeling significantly happier, improved personal hygiene, increased awareness of distorted thought patterns, challenging distorted thoughts, better able to manage anxiety, decrease in anger outbursts. Strategies for Success:: Strategies that can help you maintain progress includes: opposite action, positive affirmations, self-care, personal hygiene, reaching out to supports, thought challenging, and getting involved in activities that you like to do. - Appointments Appointments/Referrals to Other Services:: 1. Dr. Carvajal on 08/31/20 for medication management. 2. Remember to call [facility] on Saturday to re-establish with Rosamaria - Medications Home Medications: Home Medications aripiprazole [Abilify] 10 mg PO DAILY 06/29/20 levothyroxine [Synthroid] 125 mcg PO DAILY 06/29/20 lisdexamfetamine [Vyvanse] 40 mg PO DAILY 06/29/20 norgestimate-ethinyl estradiol [Sprintec (28)] 1 tab PO DAILY 06/29/20
--- NOTE | 2020-08-11 11:07 | BH.DS ---
Discharge Summary - Demographics Date of Admission:: 06/29/20 Discharge Date: 08/11/20 Presenting Problems at Admission:: At intake pt endorsed difficulty getting out of bed, no concentration, no energy, sleeping a lot, and anhedonia. Pt reported mental health symptoms made it hard for her to function in college which had resulted in her failing her first semester of school. Pt stated she didn't go to class because difficulty getting out of bed and had no motivation to complete the school work. Pt's depression and anxiety impacted pt's ability to create social relationships. Discharge Diagnoses:: Bipolar 2 disorder, depressed (F 31.81); generalized anxiety disorder; attention deficit disorder; rule out ODD by history but patient denies this. Reason for Discharge:: Pt has made significant treatment progress since starting IOP and no longer meets criteria for IOP level of care.
--- NOTE | 2020-08-11 15:40 | BH.MDN ---
Multi-Disciplinary Note - Note 30-min Individual Time Started:: 10:10 Date: 08/11/20 Purpose of session/treatment goals addressed:: Purpose of session was to review pt's treatment progress since starting IOP, identify strategies to maintain progress and solidfy discharge plans. Eye Contact:: Good Motor Activity:: Appropriate Appearance:: Casual Speech:: Appropriate Mood:: Euthymic Affect:: Congruent Thoughts:: Linear, Logical, No evidence of hallucinations/delusions noted Staff Interventions:: discharge planning, strengths perspective, other - reviewed treatment progress Client Response:: Pt identified treatment progress to include: feeling happier, no depressed symptoms, improved hygiene, recognize and counter negative thoughts, improved anxiety, better use of healthy coping skills to manage mental health symptoms, and decrease in anger outbursts. Pt identified strategies to help her maintain progress include: opposite action, daily positive affirmations, engaging in self-care, daily personal hygiene, reaching out to supports, joining a meet up to increase social connections, and continue to thought challenge. Pt stated she feels ready to discharge from IOP today. Pt stated she can benefit from working with her outpatient therapist on reinforcing healthy coping skills, identifying mental health wins, and having therapist help keep her accountable. Risks/Concerns:: denies current suicidal/homicidal ideation, plan or intention to date. Progress Toward Goals/Plan:: Progress noted with pt reported decreased depression, decreased anxiety, improved healthy coping skills, increased daily personal hygiene and decreased anger. Pt has made significant treamtment progress and will discharge from IOP today. Pt will follow up with outpatient counselor [facility] and see Dr. Carvajal on 08/31/20 for psychiatry. Time Stopped:: 10:40
== END 2020-08-11 14:00 | disposition home or self-care (01) ==
LOC: BHIOP 09:00
PROVIDERS: Referring Provider Psychiatry & Neurology Psychiatry; Visit Provider Psychiatry & Neurology Psychiatry
DX: F31.81 Bipolar II disorder (principal); F41.1 Generalized anxiety disorder; F98.8 Other specified behavioral and emotional disorders with onset usually occurring in childhood and adolescence
CPT/HCPCS: S9480; 90832; 90834; 90853